=== PATIENT | male | born 1985 | race Caucasian/White ===

== ENCOUNTER 2021-10-25 00:32 | Emergency (ER) | payer OTHER ==
[2021-10-25 00:38] VITALS: BP 112/74; PULSE 69; TEMP 98.5; BMI 22.4
[2021-10-25] MEDS ORDERED: AZITHROMYCIN 500 MG TABLET PO ONE (00:38)
[2021-10-25] MEDS ORDERED: AZITHROMYCIN 250 MG TABLET ONE (00:41)
== END 2021-10-25 00:45 | disposition home or self-care (01) ==
LOC: FER 00:32
DX: J01.00 Acute maxillary sinusitis, unspecified (principal)
CPT/HCPCS: 99283-25

== ENCOUNTER 2021-10-28 23:01 | Emergency (ER) | payer OTHER ==
[2021-10-28 23:09] VITALS: BP 109/69; PULSE 74; TEMP 98.8; BMI 22.4
[2021-10-28 23:29] LABS: HEMATOCRIT 44.8 % (35.4-49); HEMOGLOBIN 15.8 G/dL (11.7-16.9); MCH 31.5 pg (25.7-33.7); MCHC 35.3 g/dl (32.0-35.9); MEAN CELL VOLUME 89.3 fl (80-96); MEAN PLT VOLUME 8.3 fl (7.5-11.1); PLATELET COUNT 188.3 10^3/uL (134-434); RBC 5.02 10^6/uL (4.00-5.60); RDW 13.9 % (11.9-15.9); WHITE BLOOD COUNT 6.3 10^3/uL (4.0-10.8)
[2021-10-28] MEDS ORDERED: DIPHTH,PERTUSS(ACELL),TET 0.5 ML DISP.SYRIN IM ONE ×2 (23:42→23:45)
[2021-10-28 23:44] LABS: ALBUMIN 4.2 g/dl (3.4-5.0); BILIRUBIN,TOTAL 0.6 mg/dl (0.2-1); CALCIUM 8.9 mg/dl (8.5-10); CREATININE 0.8 mg/dl (0.55-1.3); TOT PROT 7.2 g/dl (6.4-8.2)
[2021-10-28] MEDS ORDERED: AMOX TR/POT CLAV 875MG/125MG TABLETS (FP) PO ONE (23:44)
[2021-10-28] MEDS ORDERED: AMOX TR/POT CLAV 875MG/125MG TABLETS (FP) ONE (23:45)
== END 2021-10-29 01:31 | disposition home or self-care (01) ==
LOC: FER 23:01
PROC: 3E0234Z Introduction of Serum, Toxoid and Vaccine into Muscle, Percutaneous Approach (ICD-10-PCS; principal; 2021-10-28)
DX: S11.81XA Laceration without foreign body of other specified part of neck, initial encounter (principal); W54.0XXA Bitten by dog, initial encounter
CPT/HCPCS: 36415; 70498-TC; 80053; 85025; 90715; 99284-25; Q9967